=== PATIENT | male | born 1960 | race Caucasian/White ===

== ENCOUNTER → 2021-10-17 10:33 | Outpatient (CLI) | payer BC, SELFPAY ==
--- NOTE | 2021-10-17 10:42 | XR_ITS ---
FINAL REPORT CLINICAL HISTORY: bilateral foot pain FINDINGS: LEFT FOOT Three views of the left foot were obtained. There is no acute fracture or dislocation. There is a plantar calcaneal spur identified. There are mild degenerative changes. There is no soft tissue abnormality. IMPRESSION: Degenerative changes with no acute fracture Reviewed, Interpreted and Dictated by Farrukh Echevarria III, MD Transcribed by Kimberly Yoon Authenticated by Farrukh Echevarria III, MD on 10/17/2021 12:55:21 PM [facility]
--- NOTE | 2021-10-17 10:42 | XR_ITS ---
FINAL REPORT CLINICAL HISTORY: bilateral foot pain FINDINGS: RIGHT FOOT Three views of the right foot were obtained. There is no acute fracture or dislocation. There is mild degenerative change. There is a plantar calcaneal spur. There are chronic calcifications adjacent to the head of the 5th metatarsal. IMPRESSION: Degenerative changes as above with no acute fracture Reviewed, Interpreted and Dictated by Farrukh Echevarria III, MD Transcribed by Kimberly Yoon Authenticated by Farrukh Echevarria III, MD on 10/17/2021 12:55:24 PM [facility]
== END ==
PROVIDERS: PCP Emergency Medicine; Visit Provider Podiatrist
DX: M79.672 Pain in left foot (principal); M79.671 Pain in right foot
CPT/HCPCS: 73630